=== PATIENT | male | born 1980 | race Hispanic/Latino ===

== ENCOUNTER 2023-04-29 04:53 | Emergency (ER) | payer SELFPAY ==
[2023-04-29] MEDS ORDERED: LORAZEPAM 0.5 MG TABLET ONE (05:35)
[2023-04-29 05:59] LABS: Absolute Lymphocytes (CBC) 2.1 K/uL (0.7-4.9); Hematocrit 46.2 % (39.6-49.0); Lymphocytes % 33.2 % (15.3-44.8); MPV 9.5 fL (7.6-11.3); Platelets 256 thou/uL (152-406); RBC Red Blood Cell Count 4.97 M/uL (4.33-5.43)
[2023-04-29 06:01] LABS: Protime INR 0.95
[2023-04-29 07:11] LABS: Barbiturates NEGATIVE (NEGATIVE); Benzodiazepines NEGATIVE (NEGATIVE); Cocaine NEGATIVE (NEGATIVE); METHAMPHETAM NEGATIVE (NEGATIVE); Methadone NEGATIVE (NEGATIVE); Opiates NEGATIVE (NEGATIVE); Phencyclidine NEGATIVE (NEGATIVE); THC Cannibis NEGATIVE (NEGATIVE)
--- NOTE | 2023-04-29 07:13 | ER ---
Nurse's Notes [facility] Name: Monty Greene Age: 42 yrs Sex: Male : 1980 Arrival Date: 04/29/2023 Time: 04:53 Bed 20 Private MD: Diagnosis: Generalized anxiety disorder;Alcohol abuse with intoxication Presentation: 04/29 05:27 Chief complaint: EMS states: BIBA: Per EMS pt brought in for anxiety attack after nw1 arguing with malika's brothers. PMHx of seizures, anxiety, and depression. Coronavirus screen: Client denies travel out of the [place] in the last 14 days. At this time, the client does not indicate any symptoms associated with coronavirus-19. Ebola Screen: Patient negative for fever greater than or equal to 101.5 degrees Fahrenheit, and additional compatible Ebola Virus Disease symptoms Patient denies exposure to infectious person. Patient denies travel to an Ebola-affected area in the 21 days before illness onset. No symptoms or risks identified at this time. Initial Sepsis Screen: Does the patient meet any 2 criteria? No. Patient's initial sepsis screen is negative. Does the patient have a suspected source of infection? No. Patient's initial sepsis screen is negative. Risk Assessment: Do you want to hurt yourself or someone else? Patient reports no desire to harm self or others. Onset of symptoms was April 29, 2023. 05:27 Method Of Arrival: EMS: [facility] nw1 05:27 Acuity: JOANNA 3 nw1 Triage Assessment: 05:27 General: Appears uncomfortable, Behavior is anxious. Pain: Denies pain. Neuro: Level of nw1 Consciousness is awake, alert, obeys commands, Oriented to person, place, time, situation, Appropriate for age. Cardiovascular: Heart tones present. Respiratory: No deficits noted. GI: No deficits noted. Derm: No deficits noted. No signs and/or symptoms reported regarding the dermatologic system. Musculoskeletal: No deficits noted. No signs and/or symptoms reported regarding the musculoskeletal system. Historical: - Allergies: 05:34 No Known Allergies; nw1 - Immunization history:: Adult Immunizations up to date. - Social history:: Smoking status: Patient denies any tobacco usage or history of. Patient/guardian denies using street drugs. Screenin:35 [facility] ED Fall Risk Assessment (Adult) History of falling in the last 3 months, nw1 including since admission No falls in past 3 months (0 pts) Confusion or Disorientation Yes (5 pts) Intoxicated or Sedated Yes (3 pts) Impaired Gait Mobility Assist Device Used No (0 pt) Altered Elimination No (0 pt) Score/Fall Risk Level 3 or more points = High Risk Oriented to surroundings, Maintained a safe environment, Hourly rounding (assess needs \T\ fall precautionary measures) done. Abuse screen: Denies threats or abuse. Denies injuries from another. Nutritional screening: No deficits noted. Tuberculosis screening: No symptoms or risk factors identified. Assessment: 05:35 Reassessment: see triage note. nw1 07:30 Reassessment: Patient appears in no apparent distress at this time. Patient and/or hb family updated on plan of care and expected duration. Pain level reassessed. Patient is alert, oriented x 3, equal unlabored respirations, skin warm/dry/pink. Vital Signs: 05:27 BP 119 / 83; Pulse 84; Resp 18; Temp 98.2(O); Pulse Ox 99% ; Weight 95.25 kg; Height 5 nw1 ft. 10 in. ; Pain 0/10; 06:31 BP 92 / 62; Pulse 69; Resp 15; Pulse Ox 98% on R/A; nw1 07:30 BP 112 / 68; Pulse 66; Resp 15; Pulse Ox 99% on R/A; hb 05:27 Body Mass Index 30.13 (95.25 kg, 177.8 cm) nw1 05:27 Pain Scale: Adult nw1 [place] Coma Score: 05:35 Eye Response: spontaneous(4). Motor Response: obeys commands(6). Verbal Response: nw1 confused(4). Total: 14. ED Course: 04:56 Patient arrived in ED. ms3 04:56 Antonio Rhoades DO is Attending Physician. ms3 05:19 Jaqueline Hall, RN is Primary Nurse. nw1 05:25 CBC with Diff Sent. nw1 05:25 ETOH Level Sent. nw1 05:25 PT-INR Sent. nw1 05:25 Ptt, Activated Sent. nw1 05:25 Salicylate Sent. nw1 05:30 Triage completed. nw1 05:34 Arm band placed on. Labs ordered per protocol. Drawn by ED staff. nw1 05:35 No provider procedures requiring assistance completed. Initial lab(s) drawn. Inserted. nw1 Inserted saline lock: 20 gauge in right forearm, using aseptic technique. Blood collected. 05:35 Patient has correct armband on for positive identification. Placed in gown. Bed in low nw1 position. Call light in reach. Side rails up X2. Provided Education on: poc. Client placed on continuous cardiac and pulse oximetry monitoring. NIBP monitoring applied. rn medical inpatient services on. Pulse ox on. NIBP on. 07:12 Paul Bronson DO is Referral Physician. ms3 07:30 IV discontinued, intact, bleeding controlled, No redness/swelling at site. hb Administered Medications: 05:25 Drug: LORazepam PO 0.5 mg PO once Route: PO; nw1 Medication: 05:35 VIS not applicable for this client. nw1 Outcome: 07:12 Discharge ordered by MD. ms3 07:35 Discharged to home ambulatory, with family, hb 07:35 Condition: stable 07:35 Discharge instructions given to patient, family, Instructed on discharge instructions, follow up and referral plans. Demonstrated understanding of instructions, follow-up care, 07:38 Patient left the ED. hb Signatures: Edilma Francis RN RN Antonio Rhoades DO DO ms3 Jaqueline Hall, RN RN nw1 Corrections: (The following items were deleted from the chart) 07:14 05:25 BASIC METABOLIC PANEL+C.LAB.BRZ drawn and sent. nw1 EDMS 07:14 05:25 HEPATIC FUNCTION+C.LAB.BRZ drawn and sent. nw1 EDMS
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
--- NOTE | 2023-05-01 13:37 | EKG ---
Test Date: 2023-04-29 Test Time: 07:19:18 Choir Accompanist: HB MEASUREMENT RESULTS: Intervals: Rate: 68 SC: 140 QRSD: 82 QT: 384 QTc: 408 [place]: P: 59 SC: 140 QRS: 51 T: 49 INTERPRETIVE STATEMENTS: Normal sinus rhythm Early repolarization Normal ECG No previous ECG available for comparison Electronically Signed On 05-01-23 13:29:19 CNC MANUFACTURING ENGINEER by Jamal Powell
== END 2023-04-29 07:38 | disposition home or self-care (01) ==
LOC: ER 04:53
DX: F41.1 Generalized anxiety disorder (principal); F10.129 Alcohol abuse with intoxication, unspecified
CPT/HCPCS: 80179; 80307; 82077; 85025; 85610; 85730; 93005; 99284

== ENCOUNTER 2025-01-01 13:44 | Emergency (ER) | payer SELFPAY ==
--- NOTE | 2025-01-01 14:08 | EDPHYS ---
Physician Documentation [facility] Name: Monty Greene Age: 44 yrs Sex: Male : 1980 Arrival Date: 01/01/2025 Time: 13:44 Bed IW2 Private MD: ED Physician Natalya Bronson HPI: 01/01 14:04 This 44 yrs old Male presents to ER via Ambulatory with complaints of Wound cr8 Check - feet. 14:04 Patient is a 44-year-old male with no pertinent history that comes in the emergency cr8 room to have wounds on his feet checked. Reports Sunday evening he was wearing dress shoes and they rubbed a sore to the back of his heel. Reports that he initially had a blister but they have since dried out. Reports pain with wearing socks and shoes and he is unable to go to work because of the blisters to the back of his feet. He is requesting documentation from Sunday until today. Neurovascular status intact.. 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 - Infectious Disease History:: Denies. - Social history:: Smoking status: Patient reports the use of cigarette tobacco products, smokes one-half pack cigarettes per day. ROS: 14:04 Constitutional: as per HPI cr8 Exam: 14:04 Constitutional: This is a well developed, well nourished patient who is awake, alert, cr8 and in no acute distress. Head/Face: Normocephalic, atraumatic. Skin: Warm, dry with normal turgor. Normal color with no rashes. There is a 1 by half centimeter open wounds to the back of his feet along the Achilles heel is consistent with a blister. There is no surrounding warmth erythema. There is no induration fluctuance. Area is not indurated. Minimal inflammation in the wound base. Neuro: Awake and alert, GCS 15, oriented to person, place, time, and situation. Cranial nerves II-XII grossly intact. Motor strength 5/5 in all extremities. Sensory grossly intact. Vital Signs: 14:02 BP 128 / 98; Pulse 62; Resp 16; Temp 97.4; Pulse Ox 100% ; Weight 83.91 kg; Height 5 me1 ft. 10 in. ; Pain 7/10; 14:02 Body Mass Index 26.54 (83.91 kg, 177.8 cm) me1 14:02 Pain Scale: Adult me1 MDM: 14:04 Medical Screening Exam initiated cr8 14:04 Data reviewed: vital signs, nurses notes. ED course: Patient comes emergency room for 2 cr8 wounds. Considered abscess cellulitis ulcers, diabetic ulcers. On exam though this is consistent with blisters. There is no evidence of infection since there is no warmth erythema purulent drainage foul odor or induration or fluctuance. He has no medical history suggest diabetes causing ulcer chronic venous insufficiency ulcer. Presentation and assessment is consistent with healing blisters. No emergent condition identified at this time that requires further evaluation treatment. Will discuss symptomatic treatment follow-up with PCP for further evaluation.. Administered Medications: No medications were administered Disposition Summary: 01/01/25 14:08 Discharge Ordered Notes: Location: Home cr8 Condition: Stable cr8 Diagnosis - Blister (nonthermal) of foot cr8 Followup: cr8 - With: Private Physician - When: 5 - 6 days - Reason: Wound Recheck, Worsening of condition Followup: cr8 - With: Emergency Department - When: As needed - Reason: Fever > 102 F, Worsening of condition Discharge Instructions: - Discharge Summary Sheet cr8 - Blisters, Adult cr8 Forms: - Work release form me1 - Medication Reconciliation Form cr8 - Patient Portal Instructions cr8 - Leadership Thank You Letter cr8 Signatures: Aubree Peter RN RN me1 Reed Goldberg NP PER DIEM PHYSICAL THERAPIST cr8
--- NOTE | 2025-01-01 14:08 | ER ---
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 Coronavirus screen: Vaccine status: At this time, the client does not indicate any symptoms associated with coronavirus-19. Ebola Screen: No symptoms or risks identified at this time. Initial Sepsis Screen: Does the patient meet any 2 criteria? No. Patient's initial sepsis screen is negative. Does the patient have a suspected source of infection? No. Patient's initial sepsis screen is negative. Risk Assessment: Do you want to hurt yourself or someone else? Patient reports no desire to harm self or others. Onset of symptoms was December 28, 2024. 14:02 Method Of Arrival: [place] [facility] [place]:02 Acuity: JOANNA 5 mt1 Triage Assessment: 14:05 General: Appears uncomfortable, well groomed, well developed, well nourished, Behavior me1 is calm, cooperative, appropriate for age, Reports. Pain: Complains of pain in right foot and left foot Pain does not radiate. Pain currently is 7 out of 10 on a pain scale. Quality of pain is described as burning, stinging, Pain began gradually, Is continuous. EENT: No signs and/or symptoms were reported regarding the EENT system. Neuro: Level of Consciousness is awake, alert, obeys commands, Oriented to person, place, time, situation, Appropriate for age. Cardiovascular: Patient's skin is warm and dry. Respiratory: Airway is patent Respiratory effort is even, unlabored, Respiratory pattern is regular, symmetrical. GI: No signs and/or symptoms were reported involving the gastrointestinal system. : No signs and/or symptoms were reported regarding the genitourinary system. Derm: Wound noted left and right heel/achilles Wound is opened blisters. Musculoskeletal: Reports pain in right foot and left foot. 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 - Infectious Disease History:: Denies. - Social history:: Smoking status: Patient reports the use of cigarette tobacco products, smokes one-half pack cigarettes per day. Screenin:08 [facility] ED Fall Risk Assessment (Adult) History of falling in the last 3 months, me1 including since admission No falls in past 3 months (0 pts) Confusion or Disorientation No (0 pts) Intoxicated or Sedated No (0 pts) Impaired Gait No (0 pts) Mobility Assist Device Used No (0 pt) Altered Elimination No (0 pt) Score/Fall Risk Level 0 - 2 = Low Risk Maintained a safe environment, Provided non-skid footwear, Hourly rounding (assess needs \T\ fall precautionary measures) done. Abuse screen: Denies threats or abuse. Nutritional screening: No deficits noted. Tuberculosis screening: No symptoms or risk factors identified. Assessment: 14:08 General: See triage assessment. me1 Vital Signs: 14:02 BP 128 / 98; Pulse 62; Resp 16; Temp 97.4; Pulse Ox 100% ; Weight 83.91 kg; Height 5 me1 ft. 10 in. ; Pain 7/10; 14:02 Body Mass Index 26.54 (83.91 kg, 177.8 cm) me1 14:02 Pain Scale: Adult mt1 ED Course: 13:49 Patient arrived in ED. im 13:50 Reed Goldberg NP is PHCP. cr8 13:50 Natalya Bronson MD is Attending Physician. cr8 14:05 Triage completed. me1 14:05 Arm band placed on Patient placed in waiting room. me1 14:08 Patient has correct armband on for positive identification. Provided Education on: POC. me1 Verbalized understanding.. 14:08 No provider procedures requiring assistance completed. Patient did not have IV access me1 during this emergency room visit. Administered Medications: No medications were administered Medication: 14:08 VIS not applicable for this client. me1 Outcome: 14:08 Discharge ordered by . cr8 14:13 Discharged to home ambulatory, me1 14:13 Condition: stable 14:13 Discharge instructions given to patient, Instructed on discharge instructions, follow up and referral plans. Demonstrated understanding of instructions, follow-up care, 14:13 Patient left the ED. me1 Signatures: Bianca Llamas Michelle, RN RN me1 Reed Goldberg NP DATABASE MANAGEMENT SPECIALIST cr8
[2025-01-01 14:21] VITALS: BP 128/98; TEMP 97.4; O2SAT 100
== END 2025-01-01 14:13 | disposition home or self-care (01) ==
LOC: ER 13:44
DX: S90.822A Blister (nonthermal), left foot, initial encounter (principal); S90.821A Blister (nonthermal), right foot, initial encounter
CPT/HCPCS: 99282